=== PATIENT | male | born 1960 | race Caucasian/White ===

== ENCOUNTER 2016-07-16 05:00 | Day surgery (SDC) | payer OTHER ==
[~2016-07-16] VITALS: Ht 188 cm; Wt 133.8 kg
[2016-07-16 06:35] LABS: BASOPHILS 0.5 % (0.0-2.0); EOSINOPHILS 2.3 % (0-7); HEMATOCRIT 40.1 % (42.0-54.0); HEMOGLOBIN 12.9 g/dL (13.5-17.5); IMMATURE GRANULOCYTES 0.2 % (0-5); LYMPHOCYTES 22.6 % (15-50); MCH 29.3 pg (26.0-34.0); MCHC 32.2 g/dL (31.0-37.0); MCV 91.1 fL (80.0-100.0); MEAN PLATELET VOLUME 9.4 fL (7.4-10.4); MONOCYTES 8.8 % (2-11); NEUTROPHILS 65.6 % (40-80); PLATELET COUNT 169 10x3/uL (130-400); RDW 13.5 % (11.5-14.5); WBC 6.5 10x3/uL (4.8-10.8)
[2016-07-16] MEDS ORDERED: ASPIRIN325 MG PO (06:56)
[2016-07-16] MEDS ORDERED: CALTRATE 600 M600 M1 (06:57)
[2016-07-16] MEDS ORDERED: CALMOSEPTINE OI71 GM TOPICAL (06:57)
[2016-07-16 06:58] LABS: CALC OSMOLALITY 280 mosm/kg (275-300); CALCIUM 8.9 mg/dL (8.5-10.1); CARBON DIOXIDE 25.2 mmol/L (21.0-32.0); CHLORIDE - SERUM 106 mmol/L (98-107); CREATININE - SERUM 0.7 mg/dL (0.6-1.3); GLUCOSE 101 mg/dL (74-106); POTASSIUM - SERUM 3.7 mmol/L (3.5-5.1); SODIUM 140 mmol/L (136-145); UREA NITROGEN 17 mg/dL (7-18); eGFR NON AFRICAN AMERICAN > 90 mL/min (90-120)
[2016-07-16] MEDS ORDERED: NEURONTIN600 MG PO (06:58)
[2016-07-16] MEDS ORDERED: FUROSEMIDE20 MG PO (06:58)
[2016-07-16] MEDS ORDERED: NEURONTIN 300300 MG PO (06:58)
[2016-07-16] MEDS ORDERED: K-DUR20 MEQ PO (06:59)
[2016-07-16] MEDS ORDERED: HYDROCODON-ACE1 EAC7 PO (06:59)
[2016-07-16] MEDS ORDERED: PRENATAL COMPLE1 TAB PO (07:00)
[2016-07-16] MEDS ORDERED: COUMADIN2 MG PO (07:00)
[2016-07-16 07:06] VITALS: BP 120/72; Ht 188 cm; Wt 133.8 kg
[2016-07-16 07:10] LABS: APTT 37.4 SECONDS (22.8-39.4); INR 2.1 (0.85-1.17); PROTIME 23.6 SECONDS (11.6-15.0)
--- NOTE | 2016-07-16 07:17 | NUR ---
0715 CALLED SURGERY AND SPOKE TO ABDOULAYE ABOUT PATIENTS ELEVATED PT AND INR, SHE WILL INFORM DR. CASTELLANO.
--- NOTE | 2016-07-16 09:47 | NUR ---
PATIENT POSITIONED SUPINE FOR FIRST HALF OF PROCEDURE THEN TURNED PRONE, SAFETY MEASURES TAKEN PRESSURE POINTS PADDED AND SECURED, NO IMPINGEMENTS, GILBERTO.
--- NOTE | 2016-07-16 12:10 | NUR ---
1115 BACK FROM [facility] RT LEG AWAKE AND RESP EVEN AND NONLABORED, RT LEG DRESSING ON C/D/I,NO BLEEDING TOES PINK. DENIES PAIN OR NAUSEA.
--- NOTE | 2016-07-16 12:28 | NUR ---
1200 TALKED WITH DOT IN [employer] AND WILL BE SURE GETS [employer] OF OP NOTE. SENT H AND P WITH DISCHARGE PAPERS.
--- NOTE | 2016-07-16 13:29 | NUR ---
1255 UP TO THE BR AND VOIDED AND WHEN DOING SO HAD A BLEED FROM BACK OF RT KNEE AREA. AREA APPLIED PRESSURE X 5 MINUTES AFTER VOIDED ASSISTED AND REINFORCED DRESSING ASSISTED IN BED AND PUT IN REVERSE [place].FLUIDS SERVED LUNCH TRAY ORDERED. RT LEG ELEVATED ON PILLOW.
--- NOTE | 2016-07-16 15:34 | NUR ---
1300 IN BED IN [place] NO FURTHER BLEEDING TO LEG.
--- NOTE | 2016-07-16 15:40 | NUR ---
1500 SMALL AMT BLEEDING TO BACK OF KNEE REINFORCED AND NO BLEEDING AFTER. 1540 TO [facility] VIA W/C.
--- NOTE | 2016-07-16 15:41 | NUR ---
1529 MEDICATED WITH NORCO FOR PAIN.
--- NOTE | 2016-07-16 15:41 | NUR ---
1535 IV DCD CATHETER INTACT DISCHARGE INSTRUCTIONS GONE OVER. 1540 TO [facility] VIA W/C.
== END 2016-07-16 15:40 | disposition home or self-care (01) ==
LOC: D.OPS 05:00
PROVIDERS: Anesthesiology
DX: I87.2 Venous insufficiency (chronic) (peripheral) (principal); I82.509 Chronic embolism and thrombosis of unspecified deep veins of unspecified lower extremity; I87.8 Other specified disorders of veins; I87.001 Postthrombotic syndrome without complications of right lower extremity; R59.0 Localized enlarged lymph nodes

== ENCOUNTER → 2020-02-01 12:10 | Outpatient (CLI) | payer OTHER ==
[2016-07-16 07:06] VITALS: BMI 37.9
[~2020-02-01 12:10] MED LIST: ASPIRIN325 MG PO; CALMOSEPTINE OI71 GM TOPICAL; CALTRATE 600 M600 M1; COUMADIN2 MG PO; FUROSEMIDE20 MG PO; HYDROCODON-ACE1 EAC7 PO; K-DUR20 MEQ PO; NEURONTIN 300300 MG PO; NEURONTIN600 MG PO; PRENATAL COMPLE1 TAB PO
== END | disposition home or self-care (01) ==
LOC: D.US 12:10
PROVIDERS: ATTEND Surgery
DX: I87.2 Venous insufficiency (chronic) (peripheral) (principal)

== ENCOUNTER 2020-07-28 05:19 | Day surgery (SDC) | payer OTHER ==
[~2020-07-28] VITALS: Ht 188 cm; Wt 141.5 kg
[2020-07-28] MEDS ORDERED: BAYER CHEWABLE81 MG PO (06:19)
[2020-07-28 06:20] LABS: BASOPHILS 0.3 % (0-2); EOSINOPHILS 6.1 % (0-7); HEMATOCRIT 43.3 % (42.0-54.0); HEMOGLOBIN 14.1 g/dL (13.5-17.5); IMMATURE GRANULOCYTES 0.3 % (0-5); LYMPHOCYTE ABS# 2.26 10x3/uL (1.32-3.57); LYMPHOCYTES 39.1 % (15-50); MCH 29.7 pg (26.0-34.0); MCHC 32.6 g/dL (31.0-37.0); MCV 91.2 fL (80.0-100.0); MEAN PLATELET VOLUME 9.7 fL (7.4-10.4); MONOCYTES 11.8 % (2-11); NEUTROPHIL ABS# 2.45 10x3/uL (1.78-5.38); NEUTROPHILS 42.4 % (40-80); PLATELET COUNT 197 10x3/uL (130-400); RBC 4.75 10x6/uL (4.20-6.10); RDW 13.6 % (11.5-14.5); WBC 5.8 10x3/uL (4.8-10.8)
[2020-07-28] MEDS ORDERED: TRAMADOL HCL E100 M1 PO (06:20)
[2020-07-28] MEDS ORDERED: ULTRAM50 MG PO (06:21)
[2020-07-28] MEDS ORDERED: MULTI-DAY VITAM1 TAB PO (06:21)
[2020-07-28 06:25] VITALS: BP 142/79; Ht 188 cm; Wt 141.5 kg
[2020-07-28] MEDS ORDERED: COREG12.5 MG PO (06:28)
[2020-07-28] MEDS ORDERED: COZAAR100 MG PO (06:28)
[2020-07-28] MEDS ORDERED: PENTOXIFYLLINE (06:29)
[2020-07-28 06:33] LABS: ANION GAP 13.7 mmol/L (8-16); CALCIUM 9.3 mg/dL (8.5-10.1); CARBON DIOXIDE 23.2 mmol/L (21.0-32.0); CREATININE - SERUM 1.2 mg/dL (0.6-1.3); POTASSIUM - SERUM 3.9 mmol/L (3.5-5.1)
[2020-07-28] MEDS ORDERED: CHLORTHALIDONE (06:34)
--- NOTE | 2020-07-28 13:39 | OP ---
PATIENT NAME: HARIS RODRIGUEZ MEDICAL RECORD: [id number] :64 LOCATION:D.FORMERLY [facility] ADMISSION DATE: SURGEON: CRISTIAN CASTELLANO MD DATE OF OPERATION: 07/28/2020 PREOPERATIVE DIAGNOSES: 1. CEAP-6 venous insufficiency involving the right lower extremity. 2. Symptomatic right lower extremity varicosities. POSTOPERATIVE DIAGNOSES: 1. CEAP-6 venous insufficiency involving the right lower extremity. 2. Symptomatic right lower extremity varicosities with large incompetent bridging veins in the area of venous stasis. 3. Pathologically enlarged right inguinal lymph node. PROCEDURES: 1. Right groin excisional lymph node biopsy. 2. Ultrasound targeted foam sclerotherapy of perforating veins in the area of venous stasis. 3. Right lower extremity avulsion phlebectomies times 6. SURGEON: Cristian Castellano MD PANTRY COOK: Silas Pack, third year medical student. The risks, possible complications, and alternatives to the procedure were explained to the patient. He elects to proceed. OPERATIVE COURSE: The patient was conveyed to the operating room electively on 07/28/2020. General anesthesia was induced by the anesthesia staff. The patient was positioned supine. The right lower extremity was sterilely prepped and draped. I then examined the right lower extremity with a handheld ultrasound. I did not see a reason to perform a vein ablative procedure on this patient. There were clusters of subcutaneous varicosities and incompetent bridging veins in the area of cellulitis. These were most noticeable right under the open ulcer. I performed a targeted ultrasound-guided sclerotherapy utilizing a foam sclerosant through a 27-gauge needle. After this, I examined the rest of the leg and there was a pathologically enlarged lymph node in the right groin. An incision was accomplished over this and I removed the lymph node bluntly. I felt that this was in the patient's best interest because this lymph node was greater than 3 cm in size and somewhat worrisome for a malignancy. The groin incision was closed with interrupted 3-0 Vicryl for the deep dermis as well as a running 3-0 Vicryl for the skin. The patient was then positioned prone. The back of the right leg was sterilely prepped and draped. Some additional foam sclerotherapy was performed in the popliteal fossa. We then performed avulsion phlebectomies through the small stab incisions. Six veins were removed. A sterile dressing was applied. The patient was then extubated and conveyed to post-anesthesia care unit where he was in stable condition. TRANSINT:[id number] Voice Confirmation ID: [id number] DOCUMENT ID: [id number] OPERATIVE REPORT [id number] HARIS RODRIGUEZ, CRISTIAN DAVIS at 1339 CC: PRISCA RADER MD [id number] DICTATION DATE: 07/28/20 1126 TOWER CLEANER: 07/28/20 1207 [address] [place] [id number] [place] [id number]
--- NOTE | 2020-07-28 13:39 | HP ---
PATIENT: HARIS RODRIGUEZ MEDICAL RECORD: [id number] ACCOUNT: [id number] [facility]ATION:[facility] : 64 ADMISSION DATE: 07/28/20 PCP: PRISCA RADER MD HISTORY AND PHYSICAL EXAMINATION CHIEF COMPLAINT: Venous stasis disease. HISTORY OF PRESENT ILLNESS: The patient has CEAP-6 venous stasis involving the right lower extremity. There is lipodermatosclerosis, hemosiderin staining as well as an open ulcer. The patient has undergone a standing bilateral lower extremity venous reflux examination. Interestingly, he has a reflux involving the left lower extremity, which is fairly asymptomatic; however, he has venous insufficiency there as well that is CEAP class 4. He has undergone a vein ablative procedure in the past involving the left lower extremity. He is here today to undergo possible radiofrequency ablation, possible ligation and division of the greater saphenous vein as well as phlebectomies and sclerotherapy. HOME MEDICINES: Reviewed. PAST MEDICAL AND SURGICAL HISTORY: As described above. Also, history of right shoulder repair. FAMILY HISTORY: Father had a brain cancer. ALLERGIES: No known drug allergies. PHYSICAL EXAMINATION: GENERAL: The patient appears acutely ill. Also appears chronically ill. VITAL SIGNS: Reviewed. EARS: External ears appear normal. EYES: Extraocular movements are intact. NECK: Trachea is midline. CHEST: No intercostal retractions. PULMONARY: Nonlabored. No stridor. IMPRESSION: 1. CEAP-6 venous insufficiency involving the right lower extremity. 2. Symptomatic right lower extremity varicosities. PLAN: As described above. TRANSINT:[id number] Voice Confirmation ID: [id number] DOCUMENT ID: [id number] CRISTIAN CASTELLANO MD at 1339 CC: PRISCA RADER MD [id number] DICTATION DATE: 07/28/20 1122 ENGINE COWLING INSTALLER: 07/28/20 1139 [address] [place] [id number] [place] [address]
--- NOTE | 2020-07-28 14:15 | NUR ---
PATIENT SITTING ON SIDE OF BED, NO FURTHER BLEEDING NOTED. DRESSED IN ADC CLOTHING. DISCHARGE INSTRUCTIONS REVIEWED WITH PATIENT. DISCHARGED VIA WHEELCHAIR WITH ADC GUARDS
[2020-07-28 14:16] LABS: APTT 41.8 SECONDS (22.8-39.4); INR 2.85 (0.85-1.17); PROTIME 27.8 SECONDS (11.6-15.0)
== END 2020-07-28 14:15 ==
LOC: D.OPS 05:19
PROVIDERS: Anesthesiology; ATTEND Surgery
DX: I87.8 Other specified disorders of veins (principal); I87.2 Venous insufficiency (chronic) (peripheral); I82.819 Embolism and thrombosis of superficial veins of unspecified lower extremity; R59.9 Enlarged lymph nodes, unspecified